=== PATIENT | male | born 1930 | race Caucasian/White ===

== ENCOUNTER 2016-10-22 07:56 | Day surgery (SDC) | payer MEDICARE, BC ==
[~2016-10-22 07:56] MED LIST: Bupivacaine 0.5% 30 ML SDV ONE; Lidocaine 0.5% 50 ML SDV ONE; Propofol 200 MG/20 ML SDV ONE; ceFAZolin 1 GM Vial ONE; fentaNYL 100 MCG/2 ML SDV ONE
[2016-10-22] MEDS ORDERED: Sodium Chloride 0.9% 5 ML Syringe FLUSH PRN (08:00)
[2016-10-22] MEDS ORDERED: Sodium Chloride 0.9% 1,000 ML IV SCH (08:00)
[2016-10-22] MEDS ORDERED: Lidocaine 1% 50 ML MDV ONE (09:05)
[2016-10-22] MEDS ORDERED: Propofol 200 MG/20 ML SDV IV ONE (09:05)
[2016-10-22] MEDS ORDERED: fentaNYL 100 MCG/2 ML SDV ONE (09:05)
[2016-10-22] MEDS ORDERED: ceFAZolin 1 GM Vial ONE (09:05)
[2016-10-22] MEDS ORDERED: Bupivacaine 0.5% 30 ML SDV INFILT ONE ×2 (09:34)
[2016-10-22] MEDS ORDERED: methylPREDNISolone Acetate 40 MG/ML SDV INJECT ONE (09:44)
--- NOTE | 2016-10-22 10:13 | PCM.OPNOTE ---
[id number] Dupuytren's contracture left hand Findings: moderate findings of Dupuytren's contracture involving the middle finger of left hand were found. Excision was performed. Pre Op Diagnosis: Duputreyen,s Contracture left hand. Anesthesia Technique: Regional block Primary Surgeon: Jose G Mcgovern Complications: None Condition: Good Free Text/Narrative:: preoperative diagnosis: Dupuytren's contracture left hand. Postoperative diagnosis: As above Procedure performed: Excision of Duputreyens contracture left hand middle finger. procedure: Informed consent was obtained from the patient regarding this procedure. All possible complications were thoroughly discussed with this patient. These include infection, recurrence of approximately 50% within 5 years , scar tissue, numbness, tendon injury. In spite of the complications the patient decided to proceed. He was taken to the operating room where a Tone block anesthetic was administered to the left upper extremity after exsanguination of the extremity. The left hand was thoroughly prepped and draped in the usual fashion. A Z-shaped incision was made directly over the contracture. The skin incision was deepened through the subcutaneous tissue and the contracture was completely excised. Extreme care was taken to protect the digital vessels and nerves of this area. The wound was irrigated with saline, 20 mg of Depo-Medrol was left in the wound and the skin was sutured with 4-0 nylon sutures. A sterile pressure dressing was applied. The patient tolerated the procedure very well. There were no operative complications. He was returned to the recovery room in excellent condition.
[2016-10-22 11:33] VITALS: BP 164/79
== END 2016-10-22 11:25 | disposition home or self-care (01) ==
LOC: KA.SDS 07:56
PROVIDERS: ATTEND Family Medicine
DX: M72.0 Palmar fascial fibromatosis [Dupuytren] (principal); I10 Essential (primary) hypertension; E78.5 Hyperlipidemia, unspecified; Z88.0 Allergy status to penicillin; Z98.890 Other specified postprocedural states; Z79.899 Other long term (current) drug therapy; E11.9 Type 2 diabetes mellitus without complications
CPT/HCPCS: 26121; 82962; J0690; J1030; J2704; J3010; J7030; 01820; 88304